=== PATIENT | female | born 1940 | race Caucasian/White ===

== ENCOUNTER → 2017-03-09 | Outpatient (CLI) | payer MEDICARE ==
[2014-09-06 12:43] VITALS: BP 154/72
[~2017-03-09] MED LIST: DICY20TA3 PO; FURO20TA3 PO; FURO40TA4 PO; IBUP-1060 PO; IOHEXOL 180 MG/ML 10 ML VIAL. ONE; LEVO200T5 PO; LEVO25TA4 PO; LISI-338 PO; LOSA100T6 PO; METF500T9 PO; PANT40TA5 PO; POTASSIUM CHLO10 MEQ PO; TRAM50TA PO; VENTOLIN HFA18 GM INH; eye drop; methylPREDNISolone ACETATE 40 MG/ML VIAL. ONE; methylPREDNISolone ACETATE 80 MG/ML VIAL. ONE; prednisone
--- NOTE | 2017-03-10 02:25 | PN ---
DATE: 03/09/2017 INITIAL CONSULTATION FOR PAIN CLINIC CHIEF COMPLAINT: Low back pain. HISTORY OF PRESENT ILLNESS: The patient is a 77-year-old female who presents with history of pain for several years and has been treated for this back in 2010 as well as 2012 with good results with lumbar epidural steroid injections at that time. The patient reports that she is having increased pain in the low back, bilateral lower extremities, mostly in the posterior gluteus, posterior thighs, lateral thighs, anterior thighs, worse with standing and is more constant and tingling sensation radiating to the legs, gradually increasing, not a result of any specific recent injury or accident that she is aware, reports it is worse with walking, standing, better with sitting or leaning forward, reports it does not awaken her from sleep at night. She has been lying down, does not affect her bowel or bladder control, but does affect her ability to walk. She has been using a walker at times, does not have with her today; however, using a motorized cart when she can at a local stores and so forth. The patient reports no loss of motor function with significant pain in the low back and bilateral lower extremities as noted. The patient reports disability rate from 0-10, 10 being the worst with 10 with family and home responsibilities, social activity and self-care, 9 with recreation, occupation and 7 with life support activities. PAST MEDICAL HISTORY: Significant for arthritis, hypertension, COPD, shortness of breath, diabetes, hypothyroidism, irritable bowel syndrome. PREVIOUS SURGERY: Include cholecystectomy 2001 and bilateral hip replacements. CURRENT MEDICATIONS: Levothyroxine, metformin, losartan, ibuprofen, tramadol, Lasix, and lisinopril. ALLERGIES: THE PATIENT IS ALLERGIC TO CODEINE. FAMILY HISTORY: Significant for heart disease. SOCIAL HISTORY: The patient does not smoke, does not drink alcohol, is recently and lives with her family locally in [place]. REVIEW OF SYSTEMS: The patient's review of systems is positive for those items mentioned in history of present illness. All systems reviewed and otherwise negative. It is complete, full and well documented on the patient's chart. PHYSICAL EXAMINATION: VITAL SIGNS: The patient's blood pressure 141/81, pulse 77, respirations 18, temperature is 98.3 degrees Fahrenheit, height is 5 feet 5 inches, and weighs 235 pounds. GENERAL: The patient is awake, alert, oriented, appropriate, very pleasant demeanor. HEENT: Head shows normocephalic, atraumatic. Extraocular movements are intact, symmetrical. The patient wears eyeglasses. Oral cavity, mucous membranes are moist and pink. Dentition is intact. NECK: Shows anterior throat supple without palpable lymphadenopathy noted. Swallow reflex is symmetrical. CHEST: Shows normal on inspection. Breath sounds clear to auscultation bilaterally. HEART: Shows S1 and S2 clear. ABDOMEN: Obese, soft, nontender, nondistended. No palpable organomegaly. No rebound or guarding demonstrated. BACK: Shows spine grossly in midline with a normal appearing and slightly kyphotic increase in curvature of the thoracic spine, lumbar lordotic spine shows normal appearance. The patient's paraspinous musculature shows moderate tenderness with palpation throughout the upper, middle, lower distribution of paraspinous muscles, but only diffusely and only to moderate extent without radiation. No tenderness over the sacrum or sacroiliac regions. The patient shows good rotational motion of the lumbar spine, both laterally as well as extension and flexion greater than 10 degrees right and left as well as extension 10 degrees, forward flexion 45 degrees only have some mild tenderness with extension 10 degrees, but relieved with forward flexion and no radiation of pain. EXTREMITIES: Lower extremities showed deep tendon reflexes 1+ in the patellar and tendo calcaneus tendons. Motor exam is strong with approximately 4 on a scale of 5, but equal and symmetrical dorsiflexion, extension, quadriceps and hamstring flexion. Peripheral pulses are 1+ posterior tibial and dorsalis pedis pulses. No peripheral edema is noted. No clubbing, no cyanosis. Lower extremities are warm and dry to touch, equal in color and appearance. The patient is able to stand, stand on her toes ____ difficulty, loses balance quickly, was able to walk without assistance, does have a significant limp appears to favor the right lower extremity with ambulation, but again is not using any assistive devices with her today, but only has a walker with her by her report. IMPRESSION: 1. This is a 77-year-old female with a long history of low back pain radiating to bilateral lower extremities with some radicular qualities as well. 2. History of arthritis. 3. Hypertension. 4. Type 2 diabetes. PLAN: Options were discussed with the patient including conservative medical management, physical therapy, interventional techniques she would like to pursue interventional techniques. We discussed a lumbar epidural steroid injection using description as well as anatomical models to describe the procedure. Risks were then discussed including, but not limited to bleeding, infection, possibility of epidural hematoma and subsequent neurologic compromise, dural puncture, headaches, spinal cord and/or nerve damage, side effects of steroid medication and poor results regarding pain control. The patient understands and wishes to proceed. The patient will return to clinic in approximately 2 weeks for followup, was counseled on return appointment, activity level and side effects to be aware of. DIAGNOSES: Lumbar radiculopathy with lumbar spinal stenosis, lumbar degenerative disease. PROCEDURE: Lumbar epidural steroid injection in translaminar approach at the L4-L5 level using C-arm fluoroscopic guidance under sterile prep and drape using local anesthetic. MEDICATION INJECTED: A 120 mg Depo-Medrol plus 10 mL of preservative-normal saline and 2 mL of Isovue for contrast. CONDITION AT DISCHARGE: Stable. The patient tolerated procedure well, had no complications. SRIDEVI CARRILLO MD DR: ELLEN/farhad JOB#: [id number] / [id number]
== END ==
LOC: PNCL 10:16
PROVIDERS: ATTEND Anesthesiology
DX: M51.16 Intervertebral disc disorders with radiculopathy, lumbar region (principal); M48.06 Spinal stenosis, lumbar region; E11.9 Type 2 diabetes mellitus without complications; I10 Essential (primary) hypertension; M19.90 Unspecified osteoarthritis, unspecified site; J44.9 Chronic obstructive pulmonary disease, unspecified; E03.9 Hypothyroidism, unspecified; Z90.49 Acquired absence of other specified parts of digestive tract
CPT/HCPCS: 62323; J1030; J1040

== ENCOUNTER → 2017-03-28 | Outpatient (CLI) | payer MEDICARE ==
[2014-09-06 12:43] VITALS: BP 154/72
--- NOTE | 2017-03-29 05:16 | PAIN ---
DATE OF SERVICE: 03/28/2017 DIAGNOSES: Lumbar radiculopathy with lumbar spinal stenosis and lumbar degenerative disk disease. HISTORY OF PRESENT ILLNESS: The patient is a 77-year-old female who returns for followup status post lumbar epidural steroid injection x 1. The patient reports about 70% improvement for the first week with much better tolerated walking and standing. She reports she has been doing much better. The pain has returned over the next week and a half, though quite to baseline, but it is a 7 on a scale of 10, currently is an 8 on average and it can be as high as 9. The patient reports it does not wake her from sleep. She feels much better sitting or lying down. Only with standing and walking, she has significant pain in the low back radiating to the right lower extremity anteriorly and in the lateral aspect of the gluteus and thigh as well. The patient reports no new motor or sensory deficits, no new bowel or bladder incontinence, describes pain as aching, dull, tight and radiating and occasionally sharp. PHYSICAL EXAMINATION: VITAL SIGNS: The patient's blood pressure 137/100, pulse 73, respirations are 20, temperature is 97.9 degrees Fahrenheit, and weight is 232 pounds. GENERAL: The patient is awake, alert, oriented, appropriate, very pleasant demeanor. HEENT: Head shows normocephalic and atraumatic. Extraocular movements are intact and symmetrical. Oral cavity, mucous membranes are moist and pink. Dentition is intact. NECK: Shows anterior throat supple. CHEST: Shows normal on inspection. Breath sounds are clear to auscultation bilaterally. HEART: Shows S1 and S2 clear. ABDOMEN: Soft, nontender, and nondistended, obese. No palpable organomegaly is noted. BACK: Shows spine grossly in the midline. Slight exaggeration of thoracic kyphosis and mild flattening of lumbar lordotic curvature. Lumbar paraspinous musculature shows normal and symmetrical on inspection. On palpation shows moderately tender bilaterally, but also diffusely without radiation. Good rotational motion both laterally as well as extension and flexion with some minor pain with extension, but not with forward flexion. EXTREMITIES: Lower extremities showed deep tendon reflexes at 1+ in the patellar and tendo calcaneus tendons. Motor exam is strong about 4 on a scale of 5, but is symmetrical and equal with dorsiflexion, extension, quadriceps and hamstring flexion bilaterally. Options were discussed with the patient. The patient's old chart was reviewed as her current medication regimen updated. Current review of systems updated today as well and we will proceed with the second lumbar epidural steroid injection today with fluoroscopic guidance. Risks were again discussed including, but not limited to bleeding, infection, possibility of epidural hematoma and subsequent neurologic compromise, dural puncture, headaches, spinal cord and/or nerve damage, side effects of steroid medication and poor results regarding pain control. The patient understands and wishes to proceed. The patient will return to clinic in approximately 2 weeks for followup. She was counseled on return appointment, activity level and side effects to be aware of. DIAGNOSIS: Lumbar radiculopathy with lumbar spinal stenosis and degenerative disk disease. PROCEDURES: Lumbar epidural steroid injection in translaminar approach at L4-L5 level using C-arm fluoroscopic guidance under sterile prep and drape using local anesthetic. Medications injected is 120 mg of Depo-Medrol plus 10 mL of preservative-free normal saline and 2 mL of Isovue for contrast. CONDITION AT DISCHARGE: Stable. The patient tolerated procedure well, had no complications. SRIDEVI CARRILLO MD DR: ELLEN/farhad JOB#: [id number] / [id number]
== END | disposition home or self-care (01) ==
LOC: PNCL 09:39
PROVIDERS: ATTEND Anesthesiology
DX: M51.16 Intervertebral disc disorders with radiculopathy, lumbar region (principal); M48.06 Spinal stenosis, lumbar region
CPT/HCPCS: 62323; J1030; J1040

== ENCOUNTER → 2017-04-20 | Outpatient (CLI) | payer MEDICARE ==
[2014-09-06 12:43] VITALS: BP 154/72
[~2017-04-20] MED LIST changes: +BUPIVACAINE MPF 0.25% 10 ML VIAL. ONE; -IOHEXOL 180 MG/ML 10 ML VIAL. ONE; -methylPREDNISolone ACETATE 40 MG/ML VIAL. ONE
== END | disposition home or self-care (01) ==
LOC: PNCL 10:52
PROVIDERS: ATTEND Anesthesiology
DX: M51.16 Intervertebral disc disorders with radiculopathy, lumbar region (principal); M48.06 Spinal stenosis, lumbar region
CPT/HCPCS: 64493; 64494; J1040; J3490

== ENCOUNTER → 2017-05-17 | Outpatient (CLI) | payer MEDICARE ==
[2014-09-06 12:43] VITALS: BP 154/72
[~2017-05-17] MED LIST changes: -BUPIVACAINE MPF 0.25% 10 ML VIAL. ONE; -methylPREDNISolone ACETATE 80 MG/ML VIAL. ONE
--- NOTE | 2017-05-17 17:36 | PAIN ---
DATE OF SERVICE: 05/17/2017 PROGRESS NOTE FOR PAIN CLINIC DIAGNOSES: Lumbar radiculopathy with lumbar spinal stenosis, lumbar degenerative disk disease. HISTORY OF PRESENT ILLNESS: The patient is a 77-year-old female who returns for followup status post lumbar epidural steroid injections x 2 and bilateral left L4-L5 and L5-S1 facet joint injections. The patient returns today after the injections 04/15, reports no significant improvement even for a few days following the injection. The patient reports the pain is actually worse in the low back, worse in the left side across the low back bilaterally radiating to the lower extremities as it did before mostly in lateral anterior thigh. The patient reports no new motor or sensory deficits, no new bowel or bladder incontinence, still significant pain rated 8 on a scale of 10 at its worst ____. The patient reports it is aching and tight on and off, pain worse with lying on her right side at night, causing pain on the left side. The patient reports no new motor or sensory deficit does awaken her from sleep. She can reposition easily go back to sleep fairly easily. The patient reports worse with standing and ambulating better with sitting or lying down. PHYSICAL EXAMINATION: VITAL SIGNS: Today, the patient's blood pressure 116/54, pulse 91, respirations 18, temperature 97.9 degrees Fahrenheit. Height is 5 feet 6 inches, weight is 231 pounds. GENERAL: The patient is awake, alert, oriented, appropriate, very pleasant demeanor. HEENT: Normocephalic, atraumatic. Extraocular movements are intact and symmetrical. Oral cavity, mucous membranes are moist and pink. Dentition intact. NECK: Shows anterior throat supple without palpable lymphadenopathy noted. Swallow reflex is symmetrical. CHEST: Shows normal on inspection. Breath sounds are clear to auscultation bilaterally. HEART: Shows S1 and S2 clear. ABDOMEN: Obese, soft, nontender, nondistended. BACK: Shows spine grossly midline. Slight exaggeration of thoracic kyphosis and some mild flattening of lumbar lordotic curvature. Lumbar paraspinous musculature shows symmetrical on inspection with palpation shows some moderate tenderness, but only diffusely in the middle and lower distribution of paraspinous muscles. The patient shows good rotational motion with some minor pain reported with left rotation and extension. EXTREMITIES: Lower extremities showed deep tendon reflexes 1+ in the patella and tendo calcaneous tendons. Motor exam is approximately 4 on a scale of 5, but equal dorsiflexion, extension, quadriceps and hamstring flexion equal and symmetrical. Options were discussed with the patient and the patient's old chart was reviewed as her current medication regimen updated. Current review of systems updated today as well and we will hold on any further injections as she wishes, no further injections at this time. We discussed physical therapy and pool therapy, most specifically. The patient will look into her local [facility] ____ water aerobics classes and is free for her to attend there by her report. I strongly encouraged her to look into this and do to this. I also talked about inversion table. She would like to try one of these as well. I encouraged her to look into that as well. Increase activity as tolerated. The patient will follow up on as needed basis at this time. SRIDEVI CARRILLO MD DR: ELLEN/farhad JOB#: [id number] / [id number]
== END | disposition home or self-care (01) ==
LOC: PNCL 13:22
PROVIDERS: ATTEND Anesthesiology
DX: M54.16 Radiculopathy, lumbar region (principal); M48.06 Spinal stenosis, lumbar region; M51.36 Other intervertebral disc degeneration, lumbar region
CPT/HCPCS: G0463

== ENCOUNTER → 2018-11-16 | Outpatient (CLI) | payer MEDICARE ==
[2014-09-06 12:43] VITALS: BP 154/72
[~2018-11-16] MED LIST changes: +LOSA100T14 PO; -LOSA100T6 PO; +POTA10TA12 PO; -POTASSIUM CHLO10 MEQ PO
--- NOTE | 2018-11-16 12:29 | KCIC ---
Complete abdominal ultrasound 11/16/2018 INDICATION: Epigastric pain COMPARISON STUDY: None Discussion: Visualized pancreas is unremarkable. Visualized aorta and IVC are unremarkable. The liver is normal in size measuring 16 cm longitudinally. Portions of liver obscured. Hepatic texture is grossly unremarkable. The right kidney is small in size measuring 7.8 cm longitudinally.Left kidney is normal in appearance measuring 10.2 cm longitudinally. No hydronephrosis or nephrolithiasis is seen involving either kidney. Spleen is normal in size. IMPRESSION: 1. Atrophic appearance of the right kidney 2. Otherwise unremarkable abdominal ultrasound Electronically signed by: Wm Lovett MD (11/16/2018 12:26 PM) [id number]
== END | disposition home or self-care (01) ==
LOC: KCIC US 11:40
PROVIDERS: ATTEND Internal Medicine Gastroenterology
DX: R10.13 Epigastric pain (principal)
CPT/HCPCS: 76700

== ENCOUNTER → 2021-01-02 | Outpatient (CLI) | payer MEDICARE ==
[2014-09-06 12:43] VITALS: BP 154/72
[~2021-01-02] MED LIST changes: +GLIP5TAB10 PO; +IOHEXOL 180 MG/ML 10 ML VIAL. ONE; -LISI-338 PO; +LISI-517 PO; +METF-658 PO; -METF500T9 PO; +OMEP20CA16 PO; -PANT40TA5 PO; +PANT40TA77 PO; +methylPREDNISolone ACETATE 40 MG/ML VIAL. ONE; +methylPREDNISolone ACETATE 80 MG/ML VIAL. ONE
--- NOTE | 2021-01-02 11:26 | PDOC1 ---
INITIAL PAIN CONSULT DATE OF SERVICE: DOS: DATE: 01/02/21 TIME: 11:18 CHIEF COMPLAINT: Chief Complaint: Low back and bilateral lower extremity pain HISTORY OF PRESENT ILLNESS: 80-year-old female presents with history of pain low back bilateral lower extremities mostly in the back and posterior hips and gluteus however but rating the posterior thighs occasionally with walking patient reports been going on for many years over the past 3 weeks the pain began to get worse and is gradually increased in the low back bilaterally left slightly greater than right but present bilaterally rating the posterior gluteus and posterior thighs patient reports is worse with standing walking changing positions or even sitting for prolonged periods greater than 30 minutes or so she has to get up and move because the pain is getting worse patient reports it is generally not awaken her from sleep at night does not affect her bowel bladder control does affect her ability walk significantly she using a walker which she has with her today. Patient has had chiropractic treatment as well as previous pain management in the past with limited results with each. Patient reports he is taking ibuprofen also tramadol which is not helpful with ibuprofen does decrease the pain by about 30% patient did have an MRI scan from January 2017 showing significant severe stenosis at L5-S1 L4-5 and L3-4 with diffuse right-sided disc bulge at L5-S1 with severe right foraminal stenosis and facet hypertrophy L4-5 shows severe right and moderate severe left foraminal stenosis and severe central spinal stenosis L3-4 shows left diffuse bulging in the both neuroforamina contribute to severe bilateral foraminal narrowing as well. Patient rates her disability rating 0-10 10 being the worst is a 9 with family home responsibilities and recreation and occupation 10 with social activity 9 with self-care and 9 with life support activities. Patient reports no loss of motor function but significant fatigability of the lower extremities with walking and standing. PAST MEDICAL HISTORY: PMH: COPD, hypertension, diabetes, hypothyroidism, cigarette smoking PREVIOUS SURGERIES: Past Surgical Hx: Cataract extractions bilaterally, left hip surgery 2012, right hip surgery 2013, cholecystectomy 1979 CURRENT MEDICATIONS: Current Meds: Active Scripts Medications Dose Route/Sig Max Daily Dose Days Date Category Omeprazole 20 Mg Capsule. 1 Cap PO DAILY 01/02/21 Reported Glipizide 5 Mg Tablet 5 Mg PO DAILY 01/02/21 Reported Lisinopril 5 Mg Tablet 1 Tab PO DAILY 02/25/16 Rx Furosemide 40 Mg Tablet 40 Mg PO [id number] 02/25/16 Rx Levothyroxine Sodium 25 Mcg Tablet 25 Mcg PO DAILYAC 02/22/16 Reported Levothyroxine Sodium 200 Mcg Tablet 200 Mcg PO DAILYAC 02/22/16 Reported Losartan Potassium 100 Mg Tablet 100 Mg PO DAILY 02/22/16 Reported Tramadol Hcl 50 Mg Tablet 50 Mg PO Q6H PRN 02/22/16 Reported ALLERGIES; Allergies: Coded Allergies: No Known Drug Allergies (Unverified , 09/06/14) FAMILY HISTORY: Family Hx: No major medical problems or conditions that she is aware of SOCIAL HISTORY: Social Hx: Patient is under alcohol does smoke less than 1 pack a day and has for 20 years, patient is , patient does with her daughter in [facility], and is currently retired. REVIEW OF SYSTEMS: ROS: Positive for those items mentioned in history of present illness, all systems are reviewed, otherwise negative ,and are complete full and well-documented on patient's chart. PHYSICAL EXAM: VS: Blood pressure is 148/82 pulse 61 respirations 20 temperature 98.2 F height is 5 feet 5 inches weight is 238 PE: PHYSICAL EXAMINATION: GENERAL: The patient is awake, alert, oriented, appropriate, very pleasant demeanor HEENT: Shows normocephalic, atraumatic. Extraocular movements are intact and symmetrical. Oral cavity: Mucous membranes moist and pink. Dentition is intact. NECK: Shows anterior throat supple without palpable lymphadenopathy noted. Swallow reflex symmetrical. CHEST: Shows normal on inspection. Breath sounds are clear bilaterally, no rales rhonchi or wheezes auscultated. HEART: Shows S1, S2 clear. No murmurs auscultated. ABDOMEN: Soft, nontender, nondistended, obese. No palpable organomegaly is noted. No rebound or guarding demonstrated. BACK: Shows spine grossly in the midline. Normal-appearing cervical lordotic curvature. There is slightly increased thoracic kyphosis, some minor flattening of the lumbar lordotic curvature. Lumbar paraspinous muscles show symmetrical on inspection, on palpation shows some moderate tenderness diffusely throughout the upper, middle and lower distribution of the paraspinous muscles bilaterally and also into the lower thoracic paraspinous musculature, firm and tender, but without specific trigger points, without radiation of pain. The patient has good rotational motion of the lumbar spine, with moderate tenderness with right and left lateral rotation past 10 degrees also significant tenderness with extension better with forward flexion at 45 degrees. No tenderness over the spinous processes, sacrum or sacroiliac regions. EXTREMITIES: Lower extremities show deep tendon reflexes 1+ in the patellar and tendo calcaneus tendons. Motor exam is 4 on a scale of 5 with right dorsiflexion, extension, quadriceps and hamstring flexion and 4/5 on the left. Peripheral pulses are 1+ posterior tibial. No peripheral edema is noted bilaterally. Lower extremities are warm and dry to touch, equal in color and appearance. The patient is able to stand, uses both arms of the chair to get up from seated position and walks with a shuffling gait and uses assistance with a walker to ambulate. SKIN: Shows warm and dry, good turgor. No edema. No sores, rashes or bruising throughout. IMPRESSION: Impression: 80-year-old female with long history of low back pain worse over the past 3 to 4 weeks with radiation across the low back and into the lower extremities posteriorly. MRI scan lumbar spine as noted COPD Diabetes Hypertension Arthritis Plan: Options were discussed the patient including conservative medical management physical therapies interventional techniques. Patient like to pursue interventional techniques. We discussed a lumbar epidural steroid injection using descriptions as well as anatomical models to describe the procedure. Risks were discussed including but not limited to: Bleeding, infection, possibility of epidural hematoma and subsequent neurological compromise, dural puncture, headaches, spinal cord and/or nerve damage, side effects of steroid medication, and poor results regarding pain control. Patient understands and wished to proceed. Patient will return to the clinic in approximate 2 weeks for follow-up, was counseled as return appointment activity level and side to be aware of. Procedure is lumbar epidural steroid injection under local anesthetic using sterile prep and drape at the L4-5 level using C-arm fluoroscopic guidance in both AP and lateral views medications injected is 120 mg Depo-Medrol + 10 mL preservative-free normal saline and 2 mL contrast- condition at discharge is stable patient tolerated procedure well had no complications. SRIDEVI CARRILLO MD Jan 02, 2021 11:26
== END | disposition home or self-care (01) ==
LOC: PNCL 10:14
PROVIDERS: ATTEND Anesthesiology
DX: M54.5 Low back pain (principal); M79.605 Pain in left leg; M79.604 Pain in right leg; J44.9 Chronic obstructive pulmonary disease, unspecified; I10 Essential (primary) hypertension; E78.00 Pure hypercholesterolemia, unspecified; E11.9 Type 2 diabetes mellitus without complications; E03.9 Hypothyroidism, unspecified; M19.90 Unspecified osteoarthritis, unspecified site; F17.210 Nicotine dependence, cigarettes, uncomplicated; Z90.49 Acquired absence of other specified parts of digestive tract; Z98.890 Other specified postprocedural states; Z79.899 Other long term (current) drug therapy
CPT/HCPCS: 62323; J1030; J1040; Q9965

== ENCOUNTER → 2021-01-16 | Outpatient (CLI) | payer MEDICARE ==
[2014-09-06 12:43] VITALS: BP 154/72
[~2021-01-16] MED LIST changes: -IOHEXOL 180 MG/ML 10 ML VIAL. ONE; -methylPREDNISolone ACETATE 40 MG/ML VIAL. ONE; -methylPREDNISolone ACETATE 80 MG/ML VIAL. ONE
--- NOTE | 2021-01-16 11:55 | PDOC ---
Progress Note - Pain Clinic Date of Service: DOS: DATE: 01/16/21 TIME: 11:52 Diagnosis: Dx: Lumbar radiculopathy with lumbar degenerative disease lumbar spinal stenosis and lumbar and lumbosacral spondylosis History or Present Illness: HPI: 40-year-old female returns for follow-up status post lumbar epidural steroid traction x1. Patient reports about 10% improvement in the low back pain now pain is to the low back itself and not radiating to the lower extremities at this time. Patient reports is worse with standing especially more than 10 to 15 minutes better with sitting or laying down does not awaken from sleep at night generally but with walking and standing significant pain in the low back itself right equal to left. Patient reports her pain is a 9 on scale 10 is worse over the past week 8 on average 6 at its least is an 8 today. Patient reports no new motor or sensory deficits no new bowel or bladder incontinence scribes the pain is burning aching cramping and stabbing dull and tight with standing. Physical Exam: VS: Blood pressure is 120/75 pulse 60 respirations 20 temperature 98.1 F weight is 230 pounds PE: PHYSICAL EXAMINATION: GENERAL: The patient is awake, alert, oriented, appropriate, very pleasant demea nor HEENT: Shows normocephalic, atraumatic. Extraocular movements are intact and symmetrical. Patient wearing eyeglasses oral cavity: Mucous membranes moist and pink. NECK: Shows anterior throat supple without palpable lymphadenopathy noted. Swallow reflex symmetrical. CHEST: Shows normal on inspection. Breath sounds are clear bilaterally, no rales or rhonchi auscultated. HEART: Shows S1, S2 clear. No murmurs auscultated. ABDOMEN: Soft, nontender, nondistended, obese. No palpable organomegaly is not ed. No rebound or guarding demonstrated. BACK: Shows spine grossly in the midline. Normal-appearing cervical lordotic curvature. There is slightly increased thoracic kyphosis, some minor flattening of the lumbar lordotic curvature. Lumbar paraspinous muscles show symmetrical on inspection, on palpation shows some moderate tenderness diffusely throughout the upper, middle and lower distribution of the paraspinous muscles, but without specific trigger points, without radiation of pain. The patient has good rotational motion of the lumbar spine, both laterally as well as extension and flexion with moderate pain reported especially with extension and axial loading of the lumbar spine better with forward flexion at 45 degrees right and left lateral rotation is moderately tender bilaterally right equal to left greater than 10 degrees. EXTREMITIES: Lower extremities show deep tendon reflexes 1+ in the patellar and tendo calcaneus tendons. Motor exam is 4 on a scale of 5 with right dorsiflexion, extension, quadriceps and hamstring flexion and 4/5 on the left. Peripheral pulses are 1+ posterior tibial. No peripheral edema is noted bila terally. Lower extremities are warm and dry to touch, equal in color and appearance. SKIN: Shows warm and dry, good turgor. No edema. No sores, rashes or bruising throughout. Procedure: Procedure: Options discussed with the patient. Patient chart reviews her current medication regimen updated current review of systems updated today as well. We will hold on further injections at this time as patient does have a fairly high co-pay she would like to wait until next month to have her procedure done we will plan on bilateral L4-5 and L5-S1 facet injections at that time. In the meantime we will try Medrol Dosepak patient was given instructions well side effects aware with the medication. Patient will follow up in approximately 1 month as scheduled and will plan on bilateral lumbar facet injections at that time. Medication Injected: Med Injected: None Condition at Discharge: Condition at Discharge: Condition at discharge is stable. SRIDEVI CARRILLO MD Jan 16, 2021 11:55
== END | disposition home or self-care (01) ==
LOC: PNCL 10:10
PROVIDERS: ATTEND Anesthesiology
DX: M51.16 Intervertebral disc disorders with radiculopathy, lumbar region (principal); M48.061 Spinal stenosis, lumbar region without neurogenic claudication; M47.27 Other spondylosis with radiculopathy, lumbosacral region; F17.210 Nicotine dependence, cigarettes, uncomplicated; Z79.899 Other long term (current) drug therapy
CPT/HCPCS: G0463

== ENCOUNTER → 2021-04-10 | Outpatient (CLI) | payer MEDICARE ==
[2014-09-06 12:43] VITALS: BP 154/72
[~2021-04-10] MED LIST changes: +HYDR-2761 PO
--- NOTE | 2021-04-10 11:37 | PDOC ---
Progress Note - Pain Clinic Date of Service: DOS: DATE: 04/10/21 TIME: 11:33 Diagnosis: Dx: Lumbar degenerative disease lumbar spinal stenosis and lumbar and lumbosacral spondylosis History or Present Illness: HPI: 81-year-old female returns for follow-up status post lumbar epidural injection x1 January 02. Patient reports it only helped for about a day or 2 the pain is changed now has new pain is only in the low back is no longer radiating to the lower extremities patient reports is much worse on the right than the left pres ent bilaterally patient reports is worse with walking standing changing position especially extension of the lumbar spine rates as a 9 on scale 10 is worse over the past week 9 on average 7 at its least is a 9 today patient reports is aching and tight and constant in the low back worse with walking standing changing positions even prolonged sitting for more than 20 to 30 minutes. Patient reports no new motor or sensory deficits no bowel or bladder incontinence. Physical Exam: VS: Blood pressure 141/79 pulse 64 respirations 16 temperature is 98.3 F height is 5 feet 5 inches weight is 232 pounds PE: PHYSICAL EXAMINATION: GENERAL: The patient is awake, alert, oriented, appropriate, very pleasant in demeanor. HEENT: Shows normocephalic, atraumatic. Extraocular movements are intact and symmetrical. NECK: Shows anterior throat supple without palpable lymphadenopathy noted. Swallow reflex symmetrical. CHEST: Shows normal on inspection. Breath sounds are clear bilaterally. HEART: Shows S1, S2 clear. No murmurs auscultated. ABDOMEN: Soft, nontender, nondistended, obese. BACK: Shows spine grossly in the midline. Normal-appearing cervical lordotic curvature. There is slightly increased thoracic kyphosis, some minor flattening of the lumbar lordotic curvature. Lumbar paraspinous muscles show symmetrical on inspection, on palpation shows some moderate tenderness diffusely throughout the upper, middle and lower distribution of the paraspinous muscles, but without specific trigger points, without radiation of pain. The patient has good rotational motion of the lumbar spine, both laterally as well as extension and flexion with moderate tenderness to the left with significant tenderness with right lateral rotation greater than 10 degrees and extension greater than 10 degrees significant tenderness in the right low back better with forward flexion 45 degrees. EXTREMITIES: Lower extremities show deep tendon reflexes 1+ in the patellar and tendo calcaneus tendons. Motor exam is 4 on a scale of 5 with right dorsiflexion, extension, quadriceps and hamstring flexion and 4/5 on the left. Peripheral pulses are 1 posterior tibial. No peripheral edema is noted bilaterally. Lower extremities are warm and dry to touch, equal in color and appearance. SKIN: Shows warm and dry, good turgor. No edema. No sores, rashes or bruising throughout. Procedure: Procedure: Options were discussed with the patient. Patient's old chart was reviewed as her current medication regimen updated current review of systems updated today as well Patient has Medrol Dosepak and she will take this in the meantime as she would like to give this a try first prior to any other interventions. We will have the patient return in approximately 2 weeks for reevaluation at that time. Medication Injected: Med Injected: None Condition at Discharge: Condition at Discharge: Condition at discharge is stable. SRIDEVI CARRILLO MD Apr 10, 2021 11:37
== END | disposition home or self-care (01) ==
LOC: PNCL 10:29
PROVIDERS: ATTEND Anesthesiology
DX: M51.36 Other intervertebral disc degeneration, lumbar region (principal); M48.061 Spinal stenosis, lumbar region without neurogenic claudication; M47.817 Spondylosis without myelopathy or radiculopathy, lumbosacral region; F17.210 Nicotine dependence, cigarettes, uncomplicated; Z79.899 Other long term (current) drug therapy; Z98.890 Other specified postprocedural states
CPT/HCPCS: 99212; G0463

== ENCOUNTER → 2021-04-24 | Outpatient (CLI) | payer MEDICARE ==
[2014-09-06 12:43] VITALS: BP 154/72
[~2021-04-24] MED LIST changes: +ALLO100T PO; +BUPIVACAINE MPF 0.25% 10 ML VIAL. ONE; +IOHEXOL 180 MG/ML 10 ML VIAL. ONE; +methylPREDNISolone ACETATE 40 MG/ML VIAL. ONE; +methylPREDNISolone ACETATE 80 MG/ML VIAL. ONE
--- NOTE | 2021-04-24 12:53 | PDOC4 ---
Procedure Note: ICD 10 Code: ICD 10 Code: M 47.816 M 47.817 M 48.07 Procedure Note: Patient was consented for bilateral lumbar facet medial branch blocks with fluoroscopic guidance. Risks were discussed including but not limited to: Bleeding, infection, possibility of epidural hematoma and subsequent neurological compromise, dural puncture, headaches, spinal cord and/or nerve damage, side effects of steroid medication, and poor results regarding pain control. Patient understands and wished to proceed. Under sterile prep and drape using C-arm fluoroscopic guidance AP and lateral and oblique views, bilateral L4-5 and L5-S1 facet joint MB's injections were performed, using quinke needles with stylette's x4,, medications injected: 120 mg Depo-Medrol +4 cc 0.25% bupivacaine +2 cc contrast. Condition at discharge stable patient tolerated the procedure well and no complications. SRIDEVI CARRILLO MD Apr 24, 2021 12:53
--- NOTE | 2021-04-24 12:53 | PDOC ---
Progress Note - Pain Clinic Date of Service: DOS: DATE: 04/24/21 TIME: 12:48 Diagnosis: Dx: lumbar degenerative disease lumbar spinal stenosis and lumbar spondylosis History or Present Illness: HPI: 81-year-old female returns in follow-up status post lumbar epidural steroid traction x1. Patient reports some reduction in pain but only real reduction is the pain that was in her legs and the pain in the back is still significant. Patient reports no longer radiating to the lower extremities has significant pain worse on the right than the left but in the bilateral patient reports is worse with standing walking changing positions better with sitting but over 30 minutes of sitting a gets worse patient reports has been waking her from sleep occasionally but not most nights patient reports her pain a 9 on scale 10 is worse over the past week 8 on average 6 its least is a 7 today describes it as tight and sharp alternating in the low back itself again worse on the right than the left patient reports is worse with bending stooping especially extension of the lumbar spine or reaching for items above her head. Patient reports no new motor or sensory deficits no new bowel or bladder incontinence Physical Exam: VS: Blood pressure is 130/82 pulse 68 respirations 20 temperature 98.5 F weight is 232 pounds PE: PHYSICAL EXAMINATION: GENERAL: The patient is awake, alert, oriented, appropriate, very pleasant in demeanor HEENT: Shows normocephalic, atraumatic. Extraocular movements are intact and symmetrical. Oral cavity: Mucous membranes moist and pink. NECK: Shows anterior throat supple without palpable lymphadenopathy noted. Swallow reflex symmetrical. CHEST: Shows normal on inspection. Breath sounds are clear bilaterally, distant but no rales or rhonchi. HEART: Shows S1, S2 clear. No murmurs auscultated. ABDOMEN: Soft, nontender, nondistended, obese. BACK: Shows spine grossly in the midline. Normal-appearing cervical lordotic curvature. There is slightly increased thoracic kyphosis, some minor flattening of the lumbar lordotic curvature. Lumbar paraspinous muscles show symmetrical on inspection, on palpation shows some moderate tenderness diffusely throughout the upper, middle and lower distribution of the paraspinous muscles, but without specific trigger points, without radiation of pain. The patient has good rotational motion of the lumbar spine, both laterally as well as extension and flexion with moderate tenderness with right and left lateral rotation greater than 10 degrees with significant tenderness with extension greater than 10 degrees in the bilateral low back worse on the right than the left. Patient shows good forward flexion without significant difficulty. No tenderness over the spinous processes, sacrum or sacroiliac regions. EXTREMITIES: Lower extremities show deep tendon reflexes 1+ in the patellar and tendo calcaneus tendons. Motor exam is 4 on a scale of 5 with right dorsiflexion, extension, quadriceps and hamstring flexion and 4/5 on the left. Peripheral pulses are 1 posterior tibial. No peripheral edema is noted bilaterally. Lower extremities are warm and dry to touch, equal in color and appearance. SKIN: Shows warm and dry, good turgor. No edema. No sores, rashes or bruising throughout. Procedure: Procedure: Options were discussed with the patient. Patient's old chart was reviewed as her current medication regimen updated current review of systems updated today as well. We will proceed with bilateral L4-5 and L5-S1 facet medial branch blocks today with fluoroscopic guidance. Risks were discussed including but not limited to: Bleeding, infection, possibility of epidural hematoma and subsequent neurological compromise, dural puncture, headaches, spinal cord and/or nerve damage, side effects of steroid medication, and poor results regarding pain control. Patient understands and wished to proceed. Patient will return to the clinic in approximate 2 for follow-up, was counseled as to the level and side effects to be aware of. Medication Injected: Med Injected: Under sterile prep and drape using C-arm fluoroscopic guidance AP and lateral and oblique views, bilateral L4-5 and L5-S1 facet joint MB's injections were performed, using quinke needles with stylette's x4,, medications injected: 120 mg Depo-Medrol +4 cc 0.25% bupivacaine +2 cc contrast. Condition at discharge stable patient tolerated the procedure well and no complications. Condition at Discharge: Condition at Discharge: Condition at discharge stable, patient alert the procedure well and had no complications. SRIDEVI CARRILLO MD Apr 24, 2021 12:52
== END | disposition home or self-care (01) ==
LOC: PNCL 10:35
PROVIDERS: ATTEND Anesthesiology
DX: M51.36 Other intervertebral disc degeneration, lumbar region (principal); M47.816 Spondylosis without myelopathy or radiculopathy, lumbar region; F17.210 Nicotine dependence, cigarettes, uncomplicated; Z79.899 Other long term (current) drug therapy; Z82.49 Family history of ischemic heart disease and other diseases of the circulatory system
CPT/HCPCS: 64493; 64494; J1030; J1040; J3490; Q9965

== ENCOUNTER → 2021-05-13 | Outpatient (CLI) | payer MEDICARE ==
[2014-09-06 12:43] VITALS: BP 154/72
--- NOTE | 2021-05-13 12:15 | PDOC ---
Progress Note - Pain Clinic Date of Service: DOS: DATE: 05/13/21 TIME: 12:06 Diagnosis: Dx: Lumbar to colopathy with lumbar degenerative disease and lumbar spinal stenosis Lumbar and lumbosacral spondylosis History or Present Illness: HPI: 81-year-old female returns for follow-up status post bilateral L4-5 and L5-S1 facet medial branch blocks. Patient returns reporting about 85% improvement after the injections the first few days with near 100% improvement overall about 85% for the first week to week and a half patient reports pain returning now in the low back bilaterally slightly worse on the right and left worse with standing walking changing positions also prolonged sitting patient reports its a better night she is not been awakened from sleep at night patient rates the pain as a 10 on scale 10 is worse over the past week 8 on average 5 its least is a 5 today patient reports is aching and tight stabbing across the low back without radiation to the lower extremities. Patient reports no new motor or sensory deficits no new bowel or bladder incontinence or other complaints. Physical Exam: VS: Blood pressure is 164/71 pulse 88 respirations 18 temperature 98.4 F height 5 feet 6 inches weight is 229 pounds PE: PHYSICAL EXAMINATION: GENERAL: The patient is awake, alert, oriented, appropriate, very pleasant in demeanor HEENT: Shows normocephalic, atraumatic. Extraocular movements are intact and symmetrical. Oral cavity: Mucous membranes moist and pink. NECK: Shows anterior throat supple without palpable lymphadenopathy noted. Swallow reflex symmetrical. CHEST: Shows normal on inspection. Breath sounds are clear bilaterally, distant but no rales rhonchi wheezes auscultated. HEART: Shows S1, S2 clear. No murmurs auscultated. ABDOMEN: Soft, nontender, nondistended, obese. No palpable organomegaly is noted. BACK: Shows spine grossly in the midline. Normal-appearing cervical lordotic curvature. There is slightly increased thoracic kyphosis, some minor flattening of the lumbar lordotic curvature. Lumbar paraspinous muscles show symmetrical on inspection, on palpation shows some moderate tenderness diffusely throughout the upper, middle and lower distribution of the paraspinous muscles without specific trigger points, without radiation of pain. The patient has good rotational motion of the lumbar spine, both laterally as well as extension and flexion with moderate tenderness noted with right and left lateral rotation greater than 10 degrees especially more on the right than the left and extension lumbar spine with significant tenderness with axial loading and extension lumbar spine better with forward flexion 45 degrees without significant pain reported. No tenderness over the spinous processes, sacrum or sacroiliac regions. EXTREMITIES: Lower extremities show deep tendon reflexes 1+ in the patellar and tendo calcaneus tendons. Motor exam is 4 on a scale of 5 with right dorsiflexion, extension, quadriceps and hamstring flexion and 4/5 on the left. Peripheral pulses are 1 posterior tibial. No peripheral edema is noted bilaterally. Lower extremities are warm and dry. SKIN: Shows warm and dry, good turgor. No edema. No sores, rashes or bruising throughout. Procedure: Procedure: Options discussed with patient. Patient chart reviews her current medication regimen updated current review of systems updated today as well. We will proceed with a bilateral L4-5 and L5-S1 facet medial branch blocks today with fluoroscopic guidance. Risks were discussed including but not limited to: Bleeding, infection, possibility of epidural hematoma and subsequent neurological compromise, dural puncture, headaches, spinal cord and/or nerve damage, side effects of steroid medication, and poor results regarding pain control. Patient understands and wished to proceed. Patient return to clinic in approximate 1 week for follow-up, was counseled as to return appointment activity level and side effects to be aware of. Medication Injected: Med Injected: Under sterile prep and drape using C-arm fluoroscopic guidance AP and lateral and oblique views, bilateral L4-5 and L5-S1 facet joint MB's injections were performed, using quinke needles with stylette's x4,, medications injected: 120 m g Depo-Medrol +4 cc 0.25% bupivacaine +2 cc contrast. Condition at discharge stable patient tolerated the procedure well and no complications. Condition at Discharge: Condition at Discharge: Condition at discharge stable, patient alert the procedure well and had no complications. SRIDEVI CARRILLO MD May 13, 2021 12:15
--- NOTE | 2021-05-13 12:16 | PDOC4 ---
Procedure Note: ICD 10 Code: ICD 10 Code: M 47.816 M 47.817 M 48.07 Procedure Note: Patient was consented for bilateral L4-5 and L5-S1 medial branch facet blocks with fluoroscopic guidance. Risks were discussed including but not limited to: Bleeding, infection, possibility of epidural hematoma and subsequent neurolo gical compromise, dural puncture, headaches, spinal cord and/or nerve damage, side effects of steroid medication, and poor results regarding pain control. Patient understands and wished to proceed. Under sterile prep and drape using C-arm fluoroscopic guidance AP and lateral and oblique views, bilateral L4-5 and L5-S1 facet joint MB's injections were performed, using quinke needles with stylette's x4,, medications injected: 120 mg Depo-Medrol +4 cc 0.25% bupivacaine +2 cc contrast. Condition at discharge stable patient tolerated the procedure well and no complications. SRIDEVI CARRILLO MD May 13, 2021 12:16
== END ==
LOC: PNCL 10:55
PROVIDERS: ATTEND Anesthesiology
DX: M48.061 Spinal stenosis, lumbar region without neurogenic claudication (principal); M47.817 Spondylosis without myelopathy or radiculopathy, lumbosacral region; M51.37 Other intervertebral disc degeneration, lumbosacral region
CPT/HCPCS: 64493; 64494; J1030; J1040; J3490; Q9965

== ENCOUNTER → 2021-05-27 | Outpatient (CLI) | payer MEDICARE ==
[2014-09-06 12:43] VITALS: BP 154/72
[~2021-05-27] MED LIST changes: -BUPIVACAINE MPF 0.25% 10 ML VIAL. ONE; -IOHEXOL 180 MG/ML 10 ML VIAL. ONE; -methylPREDNISolone ACETATE 40 MG/ML VIAL. ONE; -methylPREDNISolone ACETATE 80 MG/ML VIAL. ONE
--- NOTE | 2021-05-27 13:18 | PDOC ---
Progress Note - Pain Clinic Date of Service: DOS: DATE: 05/27/21 TIME: 13:15 Diagnosis: Dx: Lumbar degenerative disc disease lumbar spinal stenosis and lumbar and lumbosacral spondylosis History or Present Illness: HPI: 81-year-old female returns for follow-up status post bilateral L4-5 and L5-S1 facet medial branch blocks x2 patient reports about 80% improvement after the second injection for several days and then down to about 50% improvement now and is still about 50% improved patient reports increased activity with greater ease and comfort walking with better mobility and distance patient reports that after she is up on her feet for maybe 10 to 15 minutes though she must sit down fairly quickly because the pain comes on and is across the low back right essentially equal to left patient reports is a 9 on scale 10 is worse over the past week 8 on average 6 its least it is a 6 today patient reports is worse with standing walking changing positions better with sitting or laying down generally is not awaken her from sleep at night patient reports no radiation to the lower extremities at this time as well. Patient is very pleased with her progress kiran s far reports no new bowel or bladder incontinence no new motor or sensory deficits. Physical Exam: VS: Blood pressure is 136/68 pulse 71 respirations 18 temperature 99.1 F height is 5 feet 6 inches weight is 226 pounds. PE: PHYSICAL EXAMINATION: GENERAL: The patient is awake, alert, oriented, appropriate, very pleasant in d emeanor HEENT: Shows normocephalic, atraumatic. Extraocular movements are intact and symmetrical. Oral cavity: Mucous membranes moist and pink. NECK: Shows anterior throat supple without palpable lymphadenopathy noted. Swallow reflex symmetrical. CHEST: Shows normal on inspection. Breath sounds are clear bilaterally, distant but no rales or rhonchi. HEART: Shows S1, S2 clear. No murmurs auscultated. ABDOMEN: Soft, nontender, nondistended, obese. No palpable organomegaly is noted. BACK: Shows spine grossly in the midline. Normal-appearing cervical lordotic curvature. There is increased thoracic kyphosis, some flattening of the lumbar lordotic curvature. Lumbar paraspinous muscles show symmetrical on inspection, on palpation shows some moderate tenderness diffusely throughout the upper, middle and lower distribution of the paraspinous muscles without specific trigger points, without radiation of pain. The patient has good rotational motion of the lumbar spine, both laterally as well as extension and flexion with significant tenderness with extension and axial loading lumbar spine right equal to left better with forward flexion 45 degrees which relieves the pain to some extent right and left lateral rotation at 10 degrees is moderately tender bilaterally but without radiation. No tenderness over the spinous processes, sacrum or sacroiliac regions. EXTREMITIES: Lower extremities show deep tendon reflexes 1+ in the patellar and tendo calcaneus tendons. Motor exam is 4 on a scale of 5 with right dorsifl exion, extension, quadriceps and hamstring flexion and 4/5 on the left. Peripheral pulses are 1+ posterior tibial. No peripheral edema is noted bilaterally. Lower extremities are warm and dry to touch, equal in color and appearance. SKIN: Shows warm and dry, good turgor. No edema. No sores, rashes or bruising throughout. Procedure: Procedure: Options were discussed with the patient. Patient chart reviews her current medication regimen updated current review of systems updated today as well. We will preauthorize patient for radiofrequency ablation bilateral L4-5 and L5-S1 level medial branches with fluoroscopic guidance. Again patient did very well after 2 diagnostic medial branch facet blocks with pain returning however in the low back itself as noted. In the meantime, patient will continue with stretching strength exercises and oral analgesics and narcotics as currently. Medication Injected: Med Injected: None Condition at Discharge: Condition at Discharge: Condition at discharge is stable. SRIDEVI CARRILLO MD May 27, 2021 13:18
== END ==
LOC: PNCL 12:53
PROVIDERS: ATTEND Anesthesiology
DX: M51.36 Other intervertebral disc degeneration, lumbar region (principal); M48.061 Spinal stenosis, lumbar region without neurogenic claudication; M47.817 Spondylosis without myelopathy or radiculopathy, lumbosacral region
CPT/HCPCS: 99212; G0463

== ENCOUNTER → 2021-06-22 | Outpatient (CLI) | payer MEDICARE ==
[2014-09-06 12:43] VITALS: BP 154/72
[~2021-06-22] MED LIST changes: +BUPIVACAINE MPF 0.25% 10 ML VIAL. ONE; +LIDOCAINE 1% PF 2 ML VIAL. ONE; +LIDOCAINE 2% PF 5 ML VIAL. ONE; +methylPREDNISolone ACETATE 80 MG/ML VIAL. ONE
--- NOTE | 2021-06-22 15:44 | PDOC ---
Progress Note - Pain Clinic Date of Service: DOS: DATE: 06/22/21 TIME: 15:41 Diagnosis: Dx: Lumbar and lumbosacral spondylosis, lumbar spinal stenosis and lumbar degenerative disc disease History or Present Illness: HPI: 81-year-old female returns for follow-up status post lumbar facet medial branch blocks x2 with 85 to 90% improvement after each 1 we discussed radiofrequency ablation after her second injection and she was interested and we will proceed with that today. Patient rates her pain as an 8-9 on scale 10 is worst 8 on average 7 its least and is an 8 today across the low back not radiating to the lower extremities but returned after about 1 to 2 weeks following the second injections sensory to his baseline patient scribes aching and tight radiating across the back symptoms burning and cramping sometimes stabbing in the back as well. Patient reports no new motor or sensory deficits initially she was doing much better with distance walking doing household activities traveling with greater ease and comfort changing positions greater ease and sleeping better although she is fairly comfortable when she is off of her feet and does not generally awaken her from sleep currently. Patient reports no bowel or bladder incontinence. Physical Exam: VS: Blood pressure is 138/79 pulse 68 respirations are 18 temperature is 98.7 F height is 5 feet 6 inches weight is 224 pounds PE: PHYSICAL EXAMINATION: GENERAL: The patient is awake, alert, oriented, appropriate, very pleasant in demeanor HEENT: Shows normocephalic, atraumatic. Extraocular movements are intact and symmetrical. Oral cavity: Mucous membranes moist and pink. Dentition is intact. CHEST: Shows normal on inspection. Breath sounds are clear bilaterally, distant no rales rhonchi or wheezes auscultated. HEART: Shows S1, S2 clear. No murmurs auscultated. ABDOMEN: Soft, nontender, nondistended, obese. No palpable organomegaly is noted. BACK: Shows spine grossly in the midline. Normal-appearing cervical lordotic cu rvature. There is slightly increased thoracic kyphosis, some minor flattening of the lumbar lordotic curvature. Lumbar paraspinous muscles show symmetrical on inspection, on palpation shows some moderate tenderness diffusely throughout the upper, middle and lower distribution of the paraspinous muscles without specific trigger points, without radiation of pain. The patient has good rotational motion of the lumbar spine, both laterally as well as extension and flexion with moderate tenderness with extension and right and left lateral rotation greater than 10 degrees forward flexion is performed at 45 degrees without significant pain reported. EXTREMITIES: Lower extremities show deep tendon reflexes 1 in the patellar and tendo calcaneus tendons. Motor exam is 4 on a scale of 5 with right dorsiflexion, extension, quadriceps and hamstring flexion and 4/5 on the left. Peripheral pulses are 1 posterior tibial. No peripheral edema is noted bilaterally. Lower extremities are warm and dry. SKIN: Shows warm and dry, good turgor. No edema. No sores, rashes or bruising throughout. Procedure: Procedure: Options discussed with patient. Patient chart was reviewed as her current medication regimen updated current review of systems updated today as well. We will proceed with bilateral L4-5 and L5-S1 medial branch facet radiofrequency ablation today with fluoroscopic guidance. Risks were discussed including but not limited to: Bleeding, infection, possibility of epidural hematoma and subsequent neurological compromise, dural puncture, headaches, spinal cord and/or nerve damage, potential thermal destruction of surrounding tissues as well as motor nerves and permanent ischemic damage, side effects of steroid medication, and poor results regarding pain control. Patient understands and wished to proceed. Patient will return to clinic in approximate 4 weeks for f ollow-up, was counseled as return appointment, activity level, and side effects to be aware of. Medication Injected: Med Injected: Under sterile prep and drape patient in prone position using C-arm fluoroscopic guidance patient's lumbar spine was visualized in both AP oblique and lateral views using 1% lidocaine to topically anesthetize the areas overlying the L3-4, L4-5 and L5-S1 facet joints at the point of the medial branches. Using a 22- gauge insulated radiofrequency needle with curved tips and stylette, the needles were advanced to contact the region of the facet with the medial branch targets. This was repeated at the L3-4 L4-5 and L5-S1 levels. Stylette was removed and using radiofrequency probe inserted into each needle individually at each level and then motor tested with no motor stimulation of the lower extremity. Patient did have some multifidus musculature contraction in the lumbar spine only but without radiation. At this time 1 cc of 2% lidocaine was then injected in each needle after motor testing but prior to radiofrequency ablation. Needle position was confirmed continuously throughout the radiofrequency ablation with both AP oblique and lateral views at each level. At this time radiofrequency ablation was carried out each level for 60 seconds at 80 C x 2 at each level with the tip of the needle turned 90 degrees after the first 60 seconds and then subsequent 60 seconds of radiofrequency ablation. Once radiofrequency ablation was completed solution containing 0.25% bupivacaine 1 cc and 20 mg Depo-Medrol was injected each level. Needle was then withdrawn. The procedure was repeated for the contralateral side as described as well. Patient had no paresthesias throughout the procedure no radiation of pain into the lower extremities no lower extremity motor response with motor testing bilaterally. Please see radiofrequency flowsheet for levels, temperatures, impedance, etc. Condition at Discharge: Condition at Discharge: Condition at discharge is stable, patient tolerated the procedure well and had no complications. SRIDEVI CARRILLO MD Jun 22, 2021 15:44
== END | disposition home or self-care (01) ==
LOC: PNCL 13:51
PROVIDERS: ATTEND Anesthesiology
DX: M51.36 Other intervertebral disc degeneration, lumbar region (principal); M47.817 Spondylosis without myelopathy or radiculopathy, lumbosacral region; M48.061 Spinal stenosis, lumbar region without neurogenic claudication; F17.210 Nicotine dependence, cigarettes, uncomplicated; Z79.899 Other long term (current) drug therapy; Z82.49 Family history of ischemic heart disease and other diseases of the circulatory system
CPT/HCPCS: 64635; 64636; J1040; J3490

== ENCOUNTER → 2021-07-20 | Outpatient (CLI) | payer MEDICARE ==
[2014-09-06 12:43] VITALS: BP 154/72
[~2021-07-20] MED LIST changes: +IOHEXOL 180 MG/ML 10 ML VIAL. ONE; -LIDOCAINE 1% PF 2 ML VIAL. ONE; -LIDOCAINE 2% PF 5 ML VIAL. ONE; +methylPREDNISolone ACETATE 40 MG/ML VIAL. ONE
--- NOTE | 2021-07-20 13:30 | PDOC ---
Progress Note - Pain Clinic Date of Service: DOS: DATE: 07/20/21 TIME: 13:27 Diagnosis: Dx: Lumbar degenerative disease with lumbar spinal stenosis and lumbar and lumbosacral spondylosis History or Present Illness: HPI: 81-year-old female returns in follow-up status post radiofrequency ablation following lumbar facet medial branch blocks prior to that with about 75% improvement overall patient reports that the pain is returning however after the radiofrequency ablation across the low back bilaterally slightly worse on the left than the right but present bilaterally worse with walking standing changing positions getting up from seated position better with sitting but is been waking her from sleep occasionally patient reports that most times when she is laying down it is better. Patient rates her pain as a 9 on scale 10 is worse with the past week 8 on average 6 its least is an 8 today patient scribes as tight and burning aching stabbing and cramping sometimes radiating across the low back but not into the lower extremities. Patient reports no new bowel or bladder incontinence no new motor or sensory deficits. Physical Exam: VS: Blood pressure is 115/77 pulse 87 respirations 18 temperature 98.5 F weight is 229 PE: PHYSICAL EXAMINATION: GENERAL: The patient is awake, alert, oriented, appropriate, very pleasant in demeanor HEENT: Shows normocephalic, atraumatic. Extraocular movements are intact and symmetrical. Oral cavity: Mucous membranes moist and pink. NECK: Shows anterior throat supple without palpable lymphadenopathy noted. Swallow reflex symmetrical. CHEST: Shows normal on inspection. Breath sounds are clear bilaterally, distant but no rales rhonchi or wheezes auscultated. HEART: Shows S1, S2 clear. No murmurs auscultated. ABDOMEN: Soft, nontender, nondistended, obese. No palpable organomegaly is noted. BACK: Shows spine grossly in the midline. Normal-appearing cervical lordotic curvature. There is slightly increased thoracic kyphosis, some minor flattening of the lumbar lordotic curvature. Lumbar paraspinous muscles show symmetrical on inspection, on palpation shows some moderate tenderness diffusely throughout the upper, middle and lower distribution of the paraspinous muscles, without specific trigger points, without radiation of pain. The patient has good rotational motion of the lumbar spine, both laterally as well as extension and flexion with moderate pain with extension of the lumbar spine and axial loading as well as with right and left lateral rotation worse to the left and the right greater than 10 degrees forward flexion at 45 degrees performed without significant difficulty. No tenderness over the spinous processes, sacrum or sacroiliac regions. EXTREMITIES: Lower extremities show deep tendon reflexes 1+ in the patellar and tendo calcaneus tendons. Motor exam is 4 on a scale of 5 with right dorsiflexion, extension, quadriceps and hamstring flexion and 4/5 on the left. Peripheral pulses are 1 posterior tibial. No peripheral edema is noted bila terally. Lower extremities are warm and dry. SKIN: Shows warm and dry, good turgor. No edema. No sores, rashes or bruising throughout. Procedure: Procedure: Options discussed with the patient. Patient chart was reviewed as her current medication regimen updated current review of systems updated today as well. We will proceed with bilateral L4-5 and L5-S1 facet medial branch blocks today with fluoroscopic guidance. Risks were discussed including but not limited to: Blee ding, infection, possibility of epidural hematoma and subsequent neurological compromise, dural puncture, headaches, spinal cord and/or nerve damage, side effects of steroid medication, and poor results regarding pain control. Patient understands and wished to proceed. Patient return to clinic in approximate 2 weeks for follow-up, was counseled as return appointment, activity level, and side effect to be aware of. Medication Injected: Med Injected: Under sterile prep and drape using C-arm fluoroscopic guidance AP and lateral and oblique views, bilateral L4-5 and L5-S1 facet joint MB's injections were performed, using quinke needles with stylette's x4,, medications injected: 120 mg Depo-Medrol +4 cc 0.25% bupivacaine +2 cc contrast. Condition at discharge stable patient tolerated the procedure well and no complications. Condition at Discharge: Condition at Discharge: Condition at discharge is stable, patient tolerated procedure well and had no complications. SRIDEVI CARRILLO MD Jul 20, 2021 13:30
--- NOTE | 2021-07-20 13:31 | PDOC4 ---
Procedure Note: ICD 10 Code: ICD 10 Code: M4 7.816 M4 7.817 M51.36 Procedure Note: Patient was consented for bilateral L4-5 and L5-S1 medial branch facet blocks with fluoroscopic guidance. Risks were discussed including but not limited to: Bleeding, infection, possibility of epidural hematoma and subsequent neurolog ical compromise, dural puncture, headaches, spinal cord and/or nerve damage, side effects of steroid medication, and poor results regarding pain control. Patient understands and wished to proceed. Under sterile prep and drape using C-arm fluoroscopic guidance AP and lateral and oblique views, bilateral L4-5 and L5-S1 facet joint MB's injections were performed, using quinke needles with stylette's x4,, medications injected: 120 mg Depo-Medrol +4 cc 0.25% bupivacaine +2 cc contrast. Condition at discharge s table patient tolerated the procedure well and no complications. SRIDEVI CARRILLO MD Jul 20, 2021 13:31
== END | disposition home or self-care (01) ==
LOC: PNCL 12:49
PROVIDERS: ATTEND Anesthesiology
DX: M51.36 Other intervertebral disc degeneration, lumbar region (principal); M48.061 Spinal stenosis, lumbar region without neurogenic claudication; M47.817 Spondylosis without myelopathy or radiculopathy, lumbosacral region; F17.210 Nicotine dependence, cigarettes, uncomplicated; Z79.899 Other long term (current) drug therapy
CPT/HCPCS: 64493; 64494; J1030; J1040; J3490; Q9965

== ENCOUNTER → 2021-08-20 | Outpatient (CLI) | payer MEDICARE ==
[2014-09-06 12:43] VITALS: BP 154/72
[~2021-08-20] MED LIST changes: -BUPIVACAINE MPF 0.25% 10 ML VIAL. ONE; +DICY20TA PO; -DICY20TA3 PO; -IOHEXOL 180 MG/ML 10 ML VIAL. ONE; -LISI-517 PO; +LISI5TAB15 PO; -methylPREDNISolone ACETATE 40 MG/ML VIAL. ONE; -methylPREDNISolone ACETATE 80 MG/ML VIAL. ONE
--- NOTE | 2021-08-20 13:20 | PDOC ---
Progress Note - Pain Clinic Date of Service: DOS: DATE: 08/20/21 TIME: 13:16 Diagnosis: Dx: Lumbar radiculopathy with lumbar degenerative disease and lumbar spinal stenosis and lumbar and lumbosacral spondylosis History or Present Illness: HPI: 81-year-old female returns for follow-up status post radiofrequency ablation bilateral L4-5 and L5-S1 facet medial branch as well as medial branch blocks lumbar epidural steroid injections over the past 7 months patient has had very temporary relief with any of these modalities at this point. Patient reports pain still significant in the low back and the bilateral lower extremities the posterior gluteus and thighs mostly in the low back however patient reports is a 9 on scale 10 is worse over the past week 8 on average 7 its least is an 8 today patient reports is worse with standing walking she can only walk about 5 to 10 minutes he has to sit down and rest and she is out of breath at that time as well patient reports is aching pain is tight in the low back bilaterally right essentially equal to left. Patient reports that while the injections have helped the very limited she had 75% improvement but only for about a week or so H time and it keeps coming back radiofrequency ablation which had very short- lived duration as well. Patient is frustrated with her pain level and her inability to ambulate more than just 5 to 10minutes. Patient reports is much better with sitting down much better with laying down generally does not awaken her from sleep at night. We had previously discussed spinal cord stimulator and will be giving her some information regarding that today as well. Physical Exam: VS: Blood pressure is 126/78 pulse 67 respirations 20 temperature 98.4 F weight is 228 pounds. PE: PHYSICAL EXAMINATION: GENERAL: The patient is awake, alert, oriented, appropriate, very pleasant in demeanor HEENT: Shows normocephalic, atraumatic. Extraocular movements are intact and symmetrical. NECK: Shows anterior throat supple without palpable lymphadenopathy noted. Swallow reflex symmetrical. CHEST: Shows normal on inspection. Breath sounds are clear bilaterally. HEART: Shows S1, S2 clear. No murmurs auscultated. ABDOMEN: Soft, nontender, nondistended. No palpable organomegaly is noted. No rebound or guarding demonstrated. BACK: Shows spine grossly in the midline. Normal-appearing cervical lordotic curvature. There is increased thoracic kyphosis, some flattening of the lumbar lordotic curvature. Lumbar paraspinous muscles show symmetrical on inspection, on palpation shows some moderate tenderness diffusely throughout the upper, middle and lower distribution of the paraspinous muscles without specific trigger points, without radiation of pain. The patient has good rotational motion of the lumbar spine, both laterally as well as extension and flexion with significant tenderness with extension and axial loading of the lumbar spine but with forward flexion 45 degrees was performed fully right and left lateral rotation at 10 degrees is moderately tender bilaterally as well but without significant radiation. No tenderness over the spinous processes, sacrum or sac roiliac regions. EXTREMITIES: Lower extremities show deep tendon reflexes 1+ in the patellar and tendo calcaneus tendons. Motor exam is 4 on a scale of 5 with right dorsiflexion, extension, quadriceps and hamstring flexion and 4/5 on the left. Peripheral pulses are 1+ posterior tibial. No peripheral edema is noted bilaterally. Lower extremities are warm and dry. SKIN: Shows warm and dry, good turgor. No edema. No sores, rashes or bruising throughout. Procedure: Procedure: Options were discussed with the patient. Patient's old chart was reviewed as her current medication regimen updated current review of systems updated today as well. We discussed spinal cord stimulator in detail today using models as well as descriptions and patient was given information regarding the stimulator itself patient would like to move forward we will have a psychological evaluation performed and once this is cleared we will preauthorize patient for spinal cord stimulator temporary leads placement. Patient will follow up after psychological evaluation. Medication Injected: Med Injected: None Condition at Discharge: Condition at Discharge: Condition at discharge is stable. SRIDEVI CARRILLO MD Aug 20, 2021 13:20
== END | disposition home or self-care (01) ==
LOC: PNCL 12:41
PROVIDERS: ATTEND Anesthesiology
DX: M51.16 Intervertebral disc disorders with radiculopathy, lumbar region (principal); M48.061 Spinal stenosis, lumbar region without neurogenic claudication; M47.27 Other spondylosis with radiculopathy, lumbosacral region; F17.210 Nicotine dependence, cigarettes, uncomplicated; Z79.899 Other long term (current) drug therapy; Z82.49 Family history of ischemic heart disease and other diseases of the circulatory system
CPT/HCPCS: 99212; G0463

== ENCOUNTER → 2021-10-08 | Outpatient (CLI) | payer MEDICARE ==
[2014-09-06 12:43] VITALS: BP 154/72
[~2021-10-08] MED LIST changes: +LIDOCAINE 1% PF 2 ML VIAL. ONE; +SUCR1ORA14 PO
--- NOTE | 2021-10-08 15:23 | PDOC ---
Progress Note - Pain Clinic Date of Service: DOS: DATE: 10/08/21 TIME: 15:16 Diagnosis: Dx: Lumbar radiculopathy lumbar degenerative disease lumbar spinal stenosis and lumbar spondylosis History or Present Illness: HPI: 81-year-old female returns for follow-up status post lumbar epidural steroid injection and bilateral facet injections patient tablets persistent low back pain we had discussed spinal cord stimulation and we will proceed with that today. Patient reports still significant pain across the low back into the elia ateral lower extremities posterior gluteus posterior thighs mostly on the right but also on the left patient reports a 9 on scale 10 is worst 8 on average 7 its least is an 8 today patient report is worse with walking standing changing positions getting up from a seated position especially and standing for more than about 4 to 5 minutes the pain becomes unbearable she needs to sit down this does decrease the pain is not relieved completely patient reports pain is aching and tight in the low back on and off in intensity again worse with activity patient reports it wakes her from sleep but usually once or twice at night and she can generally reposition and get back to sleep patient does sleep on her right side which she feels is more comfortable. Patient reports no bowel or bladder incontinence no deficits but significant fatigability in both of the lower extremities. Patient did report increased blood glucose after her last facet injections as she is type II diabetic but was cleared up after glipizide without having to raise the dose. We discussed that spinal cord stimulation would involve no steroid chemicals or other chemicals and she is very encouraged with this type of therapy. Physical Exam: VS: Blood pressures 129/82 pulse 77 respirations 18 temperature 97.8 F weight is 230 pounds PE: PHYSICAL EXAMINATION: GENERAL: The patient is awake, alert, oriented, appropriate, very pleasant and demeanor HEENT: Shows normocephalic, atraumatic. Extraocular movements are intact and symmetrical. Oral cavity: Mucous membranes moist and pink. NECK: Shows anterior throat supple without palpable lymphadenopathy noted. Swallow reflex symmetrical. CHEST: Shows normal on inspection. Breath sounds are clear bilaterally. HEART: Shows S1, S2 clear. No murmurs auscultated. ABDOMEN: Soft, nontender, nondistended. No palpable organomegaly is noted. BACK: Shows spine grossly in the midline. Normal-appearing cervical lordotic curvature. There is increased thoracic kyphosis, some moderate flattening of the lumbar lordotic curvature. Lumbar paraspinous muscles show symmetrical on inspection, on palpation shows some moderate tenderness diffusely throughout the upper, middle and lower distribution of the paraspinous muscles, but without specific trigger points, without radiation of pain. The patient has good rotational motion of the lumbar spine, both laterally as well as extension and flexion without significant difficulty. EXTREMITIES: Lower extremities show deep tendon reflexes 1+ in the patellar and tendo calcaneus tendons. Motor exam is 4 on a scale of 5 with right dorsiflexion, extension, quadriceps and hamstring flexion and 4/5 on the left. Peripheral pulses are 1+ posterior tibial. No peripheral edema is noted b ilaterally. Lower extremities are warm and dry to touch, equal in color and appearance. SKIN: Shows warm and dry, good turgor. No edema. No sores, rashes or bruising throughout. Procedure: Procedure: Options were discussed with patient. Patient's old heart was reviewed as her current medication regimen updated current review of systems updated today as well. We will proceed with a spinal cord stimulator temporary leads placement x2 with fluoroscopic guidance. Risks were discussed including but not limited to: Bleeding, infection, possibility of epidural hematoma and subsequent neurological compromise, dural puncture, headaches, spinal cord and/or nerve damage, and poor results regarding pain control. Patient understands and wished to proceed. Patient return to clinic in approximately 1 week for reevaluation and removal of the spinal cord stimulator temporary leads at that time. Patient was cautioned as to activity level and sponge bath only during the period of the trial. Medication Injected: Med Injected: Under sterile prep and drape patient in prone position using C-arm fluoroscopic guidance patient's lumbar spine was identified and vertebral levels were counted did put external marker on the T8 level. This time the lumbar spine was revisualized and using 1% lidocaine, the area over the L4-5 level was anesth etized and then using a 14-gauge Riidr needle with stylette was entered to the epidural space at the L3-4 level using a paramedian approach to the right with preservative-free normal saline [id number] technique aspiration was noted to be negative and using direct fluoroscopy visualization spinal cord stimulator lead was then advanced without significant resistance in the midline and confirmed posterior with both AP and lateral views, and advanced to the superior endplate of the T8 vertebral level superimposed with the superior spinal cord stimulator electrode lead. Fluoroscopy was used in a lateral view to verify posterior placement in the epidural space at this point as well. At this time a second lead was then introduced in similar fashion at the L4-5 level and inserted and in the epidural space at the L3-4 level once again with preservative-free normal saline [id number] technique. Aspiration was again noted to be negative and using direct visualization with fluoroscopy second lumbar spinal cord stimulator lead was advanced without significant resistance in the midline with the superior electrode superimposed over the superior endplate of the T9 vertebral body. Lateral visualization was again confirmed with placement of the stimulator in the posterior epidural space. At this time the needles and stylette were removed with intermittent fluoroscopic visualization maintaining that the leads had not moved during this process and this was confirmed. This time 1% lidocaine was used to anesthetize the skin next to the insertion sites of the stimulator wires and using a 2-0 silk were then sutured in place. Mastisol and Tegaderm was then applied as well as reinforcing tape and gauze. Patient was transferred to the recovery area under his own power walking without difficulty and had no immediate complications from the procedure. Stimulation was then carried out with [facility] representatives. Patient will return to the clinic in approximately 1 week for removal of the temporary leads and reassessment of the patient's pain level. Condition at Discharge: Condition at Discharge: Condition at discharge stable, patient tolerated the procedure well and had no complications. SRIDEVI CARRILLO MD Oct 08, 2021 15:23
== END | disposition home or self-care (01) ==
LOC: PNCL 13:31
PROVIDERS: ATTEND Anesthesiology
DX: M51.16 Intervertebral disc disorders with radiculopathy, lumbar region (principal); M48.061 Spinal stenosis, lumbar region without neurogenic claudication; M47.26 Other spondylosis with radiculopathy, lumbar region; F17.210 Nicotine dependence, cigarettes, uncomplicated; Z79.899 Other long term (current) drug therapy; Z82.49 Family history of ischemic heart disease and other diseases of the circulatory system
CPT/HCPCS: 63650; C1897; J3490

== ENCOUNTER → 2021-10-16 | Outpatient (CLI) | payer MEDICARE ==
[2014-09-06 12:43] VITALS: BP 154/72
[~2021-10-16] MED LIST changes: -LIDOCAINE 1% PF 2 ML VIAL. ONE
--- NOTE | 2021-10-16 12:00 | PDOC ---
Progress Note - Pain Clinic Date of Service: DOS: DATE: 10/16/21 TIME: 11:57 Diagnosis: Dx: Lumbar radiculopathy with lumbar degenerative disc disease lumbar spinal stenosis and lumbar spondylosis History or Present Illness: HPI: 81-year-old female returns status post spinal cord stimulator temporary leads placement at x1 week ago. Patient reports about 50% improvement overall in the low back Pain patient reports she is unsure if she would like to keep a permanent system at this time reports that her pain during the week gradually got better as time went on through the last 7 days patient reports is a 9 on scale 10 is worst 8 on average 7 its least is a 7 today patient reports a cramping sensation and dull in the back itself without significant radiating pain into the lower extremities at this time. Patient reports no bowel or bladder incontinence reports that she felt like it was helpful but is unsure if she would be ready to have a permanent system. Patient reports no difficulty with the wires or bandages during the week as well. Physical Exam: VS: Blood pressure is 135/83 pulse 66 respirations 18 temperature 98.1 F weight is 229 pounds PE: PHYSICAL EXAMINATION: GENERAL: The patient is awake, alert, oriented, appropriate, very pleasant in demeanor HEENT: Shows normocephalic, atraumatic. Extraocular movements are intact and symmetrical. NECK: Shows anterior throat supple without palpable lymphadenopathy noted. Swallow reflex symmetrical. CHEST: Shows normal on inspection. Breath sounds are clear bilaterally. HEART: Shows S1, S2 clear. No murmurs auscultated. ABDOMEN: Soft, nontender, nondistended. No palpable organomegaly is noted. No rebound or guarding demonstrated. BACK: Shows spine grossly in the midline. Normal-appearing cervical lordotic curvature. There is increased thoracic kyphosis, some flattening of the lumbar lordotic curvature. Lumbar paraspinous muscles show symmetrical on inspection, on palpation shows some moderate tenderness diffusely throughout the upper, middle and lower distribution of the paraspinous muscles without specific trigger points, without radiation of pain. The patient has good rotational motion of the lumbar spine, both laterally as well as extension and flexion without significant difficulty. No tenderness over the spinous processes, sacrum or sacroiliac regions. Medical stimulator leads were removed under sterile technique with 6 sutures removed and no erythema demonstrated no exudate no tenderness over the areas of the insertion sites. Area was sterilely cleaned and sterilely bandaged. EXTREMITIES: Lower extremities show deep tendon reflexes 1+ in the patellar and tendo calcaneus tendons. Motor exam is 4 on a scale of 5 with right dorsiflexion, extension, quadriceps and hamstring flexion and 4/5 on the left. Peripheral pulses are 1+ posterior tibial. No peripheral edema is noted bilaterally. Lower extremities are warm and dry. SKIN: Shows warm and dry, good turgor. No edema. No sores, rashes or bruising throughout. Procedure: Procedure: Medical stimulator leads were removed x2 with tips intact sites clean and dry without erythema without tenderness without drainage. Area was sterilely cleaned and sterilely bandaged. Medication Injected: Med Injected: None Condition at Discharge: Condition at Discharge: Condition at discharge is stable. Patient will consider her pain level after removal of stimulator leads today and determine whether or not she would be interested in pursuing a permanent system. Patient to follow-up in approximately 1 week as scheduled. SRIDEVI CARRILLO MD Oct 16, 2021 12:00
== END | disposition home or self-care (01) ==
LOC: PNCL 11:16
PROVIDERS: ATTEND Anesthesiology
DX: M51.16 Intervertebral disc disorders with radiculopathy, lumbar region (principal); M48.061 Spinal stenosis, lumbar region without neurogenic claudication; M47.26 Other spondylosis with radiculopathy, lumbar region; F17.210 Nicotine dependence, cigarettes, uncomplicated; Z79.899 Other long term (current) drug therapy; Z98.890 Other specified postprocedural states; Z82.49 Family history of ischemic heart disease and other diseases of the circulatory system
CPT/HCPCS: 99212; G0463